=== PATIENT | female | born 1955 | race African-American/Black ===

== ENCOUNTER 2017-12-24 17:52 | Inpatient (IN) | payer OTHER ==
[~2017-12-24] VITALS: Ht 149.9 cm; Wt 51.7 kg
[2017-12-24] MEDS ORDERED: KETOROLAC 30MG/ML VIAL IV STA (18:40)
[2017-12-24] MEDS ORDERED: SODIUM CHLORIDE 0.9% 1,000 ML IV ONE (18:40)
[2017-12-24] MEDS ORDERED: ONDANSETRON HCL 4MG/2ML INJ IV STA (18:40)
[2017-12-24] MEDS ORDERED: MAGNESIUM/ALUMINUM HYDROXIDE/SIMETHICONE 30ML UDC PO ONE (18:45)
[2017-12-24 20:17] LABS: HEMATOCRIT. 37.5 % (36.0-48.0); HEMOGLOBIN. 13.1 g/dL (12.0-16.0); MEAN CORPUSCULAR HEMOGLOBIN 32.1 pg (28.0-32.0); MEAN CORPUSCULAR VOLUME 91.9 fL (81.0-99.0); MEAN PLATELET VOLUME 9.2 fl (7.4-10.4); PLATELET 163 x1000/uL (130-400); RED BLOOD CELL COUNT 4.08 mill/uL (4.2-5.4)
[2017-12-24 20:21] LABS: CHLORIDE 94 mEq/L (98-107); INR 1.1; PROTHROMBIN TIME 11.2 sec (9.1-11.1)
[2017-12-24 20:32] LABS: CREATINE KINASE 51 IU/L (26-192)
[2017-12-24] MEDS ORDERED: CEFEPIME HCL 2000MG/VIAL INJ IV ONE (21:00)
[2017-12-24] MEDS ORDERED: CEFEPIME 2,000 MG in DEXT 5% WATER 100 ML IV NR (21:15)
[2017-12-24 21:23] LABS: PLATELET ESTIMATE NORMAL
[2017-12-24 23:30] VITALS: BP 146/75
[2017-12-25] VITALS: BP 146/75
[2017-12-25] MEDS ORDERED: MORPHINE SULFATE 4 MG/ML CPJ (NOT FOR IM USE) IV PRN (00:30)
[2017-12-25] MEDS ORDERED: ONDANSETRON HCL 4MG/2ML INJ IV PRN ×3 (00:30→23:00)
[2017-12-25] MEDS: DEXT 5%/0.45% NACL KCL 20MEQ/L 1,000 ML IV SCH ×2 (02:30→12:20)
[2017-12-25] MEDS ORDERED: COM10 PO (03:47)
[2017-12-25] MEDS ORDERED: ONDA8TAB13 PO (03:47)
[2017-12-25 04:00] VITALS: BP 135/75
[2017-12-25 06:20] LABS: CLARITY URINE CLOUDY (CLEAR); COLOR URINE DARK YELLOW (YELLOW); KETONES URINE 2+ (NEGATIVE); LEUKOCYTE ESTERASE URINE NEGATIVE (NEGATIVE); NITRITE URINE NEGATIVE (NEGATIVE); OCCULT BLOOD URINE NEGATIVE (NEGATIVE); PROTEIN URINE 2+ (NEGATIVE); SPECIFIC GRAVITY URINE 1.042 (1.005-1.030); UROBILINOGEN URINE 0.2 E.U./dL (0.2-1.0)
[2017-12-25 06:26] LABS: HEMATOCRIT. 35.5 % (36.0-48.0); HEMOGLOBIN. 12.3 g/dL (12.0-16.0); MEAN CORPUSCULAR HEMOGLOBIN 31.7 pg (28.0-32.0); MEAN CORPUSCULAR VOLUME 91.7 fL (81.0-99.0); MEAN PLATELET VOLUME 9.3 fl (7.4-10.4); PLATELET 180 x1000/uL (130-400); RED BLOOD CELL COUNT 3.88 mill/uL (4.2-5.4); RED CELL DISTRIBUTION WIDTH 12.2 % (11.6-14.6)
[2017-12-25 08:00] VITALS: BP 147/78
[2017-12-25 10:08] LABS: CHLORIDE 97 mEq/L (98-107)
[2017-12-25 10:12] LABS: PLATELET ESTIMATE NORMAL
[2017-12-25 12:00] VITALS: BP 136/75
[2017-12-25 16:00] VITALS: BP 136/80
[2017-12-25 20:00] VITALS: BP 139/64
[2017-12-25] MEDS ORDERED: MAGNESIUM/ALUMINUM HYDROXIDE/SIMETHICONE 30ML UDC PO PRN (21:00)
[2017-12-25] MEDS ORDERED: VISCOUS LIDOCAINE 2% 15 ML UDC MM PRN (21:00)
[2017-12-25] MEDS ORDERED: FILGRASTIM-TBO 300 MCG/0.5 ML SYRINGE SQ NR (22:00)
[2017-12-26] VITALS: BP 132/64
[2017-12-26] MEDS: DEXT 5%/0.45% NACL KCL 20MEQ/L 1,000 ML IV SCH ×2 (03:23→14:11)
[2017-12-26 04:00] VITALS: BP 117/60
[2017-12-26 06:18] LABS: BASOPHILS % 0.1 % (0.0-2.0); HEMOGLOBIN. 10.5 g/dL (12.0-16.0); LYMPHOCYTES % 11.6 % (20.0-50.0); MEAN CORPUSCULAR HEMOGLOBIN 32.3 pg (28.0-32.0); MEAN CORPUSCULAR VOLUME 92.1 fL (81.0-99.0); MEAN PLATELET VOLUME 8.8 fl (7.4-10.4); MONOCYTES % 13.6 % (2.0-8.0); NEUTROPHILS % 74.7 % (40.0-76.0); PLATELET 164 x1000/uL (130-400); RED BLOOD CELL COUNT 3.26 mill/uL (4.2-5.4); RED CELL DISTRIBUTION WIDTH 12.5 % (11.6-14.6)
[2017-12-26 06:40] LABS: CHLORIDE 102 mEq/L (98-107)
[2017-12-26 08:00] VITALS: BP 122/53
[2017-12-26 12:00] VITALS: BP 155/98
[2017-12-26 16:00] VITALS: BP 161/78
[2017-12-26] MEDS: OMEPRAZOLE 20MG CAPSULE EXTENDED RELEASE PO SCH (16:50)
[2017-12-26 20:00] VITALS: BP 152/65
[2017-12-27] VITALS: BP 132/52
[2017-12-27] MEDS: DEXT 5%/0.45% NACL KCL 20MEQ/L 1,000 ML IV SCH (00:21)
[2017-12-27 04:00] VITALS: BP 121/53
[2017-12-27 07:28] LABS: BASOPHILS % 0.1 % (0.0-2.0); HEMATOCRIT. 29.3 % (36.0-48.0); HEMOGLOBIN. 10.1 g/dL (12.0-16.0); LYMPHOCYTES % 7.6 % (20.0-50.0); MEAN CORPUSCULAR HEMOGLOBIN 31.9 pg (28.0-32.0); MEAN CORPUSCULAR VOLUME 92.2 fL (81.0-99.0); MEAN PLATELET VOLUME 8.5 fl (7.4-10.4); NEUTROPHILS % 87.3 % (40.0-76.0); PLATELET 156 x1000/uL (130-400); RED BLOOD CELL COUNT 3.18 mill/uL (4.2-5.4); RED CELL DISTRIBUTION WIDTH 12.3 % (11.6-14.6)
[2017-12-27 07:58] LABS: CHLORIDE 105 mEq/L (98-107)
[2017-12-27 08:00] VITALS: BP 117/55
[2017-12-27] MEDS: OMEPRAZOLE 20MG CAPSULE EXTENDED RELEASE PO SCH (08:36)
[2017-12-27] MEDS ORDERED: DEXT 5%/0.45% NACL KCL 20MEQ/L 1,000 ML IV SCH (11:00)
[2017-12-27 12:00] VITALS: BP 140/61
[2017-12-27 16:00] VITALS: BP 135/54
[2017-12-27 16:30] VITALS: BP 140/61
== END 2017-12-27 17:15 | disposition home or self-care (01) | DRG 249 ==
LOC: ER 17:52 → EDBEDREQ 21:01 → 7WST 21:11 → EDBEDREQTM 21:20 → EDBEDREQ 21:20 → ENRESERV 21:45
PROVIDERS: ADMIT Internal Medicine; ATTEND Internal Medicine
DX: R11.2 Nausea with vomiting, unspecified (principal); D70.1 Agranulocytosis secondary to cancer chemotherapy; C50.911 Malignant neoplasm of unspecified site of right female breast; E87.1 Hypo-osmolality and hyponatremia; R13.10 Dysphagia, unspecified; E86.0 Dehydration; I10 Essential (primary) hypertension; K21.9 Gastro-esophageal reflux disease without esophagitis; K29.70 Gastritis, unspecified, without bleeding; Z96.643 Presence of artificial hip joint, bilateral
CPT/HCPCS: 36415; 71045; 80048; 82550; 83036; 83605; 83880; 84484; 87430; 87804; 93005; 96365; 96375; 99285; J0692; J1442; J1885; J2405; J7030; J7060

== ENCOUNTER 2018-04-03 14:32 | Emergency (ER) | payer OTHER ==
[~2018-04-03] VITALS: Ht 154.9 cm; Wt 48.0 kg
[~2018-04-03 14:32] MED LIST: COM10 PO; ONDA8TAB13 PO
[2018-04-03] MEDS ORDERED: ONDANSETRON HCL 4MG/2ML INJ IV STA (15:09)
[2018-04-03] MEDS ORDERED: SODIUM CHLORIDE 0.9% 1,000 ML IV ONE ×2 (15:09→17:45)
[2018-04-03 17:14] LABS: CHLORIDE 94 mEq/L (98-107); INR 1.2; PROTHROMBIN TIME 11.7 sec (9.1-11.1)
[2018-04-03 17:21] LABS: HEMATOCRIT. 31.5 % (36.0-48.0); HEMOGLOBIN. 10.7 g/dL (12.0-16.0); MEAN CORPUSCULAR HEMOGLOBIN 35.3 pg (28.0-32.0); MEAN CORPUSCULAR VOLUME 103.5 fL (81.0-99.0); MEAN PLATELET VOLUME 10.5 fl (7.4-10.4); PLATELET 96 x1000/uL (130-400); RED BLOOD CELL COUNT 3.05 mill/uL (4.2-5.4); RED CELL DISTRIBUTION WIDTH 16.4 % (11.6-14.6)
[2018-04-03] MEDS ORDERED: POTASSIUM CHLORIDE 20MEQ/PACKET PO ONE (17:45)
[2018-04-03] MEDS ORDERED: POTASSIUM CHLORIDE 20MEQ TABLET SR PO ONE (18:00)
[2018-04-03 18:09] LABS: CLARITY URINE TURBID (CLEAR); COLOR URINE DARK YELLOW (YELLOW); KETONES URINE TRACE (NEGATIVE); LEUKOCYTE ESTERASE URINE 1+ (NEGATIVE); NITRITE URINE NEGATIVE (NEGATIVE); OCCULT BLOOD URINE NEGATIVE (NEGATIVE); PROTEIN URINE 1+ (NEGATIVE); SPECIFIC GRAVITY URINE 1.033 (1.005-1.030)
[2018-04-03 18:14] LABS: PLATELET ESTIMATE MARKEDLY DECREASED
[2018-04-03 20:25] VITALS: BP 114/57
== END 2018-04-03 20:40 | disposition short-term general hospital (02) ==
LOC: ER 16:28 → CANBEDREQ 18:57 → ER 20:40
DX: R11.2 Nausea with vomiting, unspecified (principal); E87.6 Hypokalemia; C50.919 Malignant neoplasm of unspecified site of unspecified female breast
CPT/HCPCS: 36415; 71045; 80053; 81003; 83605; 84484; 85025; 85610; 93005; 96361; 96374; 99285; J2405; J7030; Z7610